=== PATIENT | male | born 1970 | race Caucasian/White ===

== ENCOUNTER 2019-06-23 06:30 | Day surgery (SDC) | payer OTHER ==
[2019-06-23] MEDS ORDERED: MIDAZOLAM HCL 2MG/2ML VIAL IV ONE (06:31)
[2019-06-23] MEDS ORDERED: LIDOCAINE 2% MDV (20MG/ML) 20ML VIAL IV ONE (06:31)
[2019-06-23] MEDS ORDERED: PROPOFOL 10 MG/ML VIAL IV ONE (06:31)
--- NOTE | 2019-06-24 07:30 | Operative Note ---
OPERATION: COLONOSCOPY with cold snare and hot snare polypectomy. PREOPERATIVE DIAGNOSIS: Colon cancer screening, initial exam, average risk. POSTOPERATIVE DIAGNOSIS: Colon polyps. PREPARATION QUALITY: Good. ESTIMATED BLOOD LOSS: Minimal. SPECIMENS: Transverse colon polyp and sigmoid colon polyp. PROCEDURE: After informed consent was obtained from the patient, he was placed in the left lateral decubitus position in the endoscopy suite, sedated and monitored by the department of anesthesia. Digital rectal examination was unremarkable. A well-lubricated [id number] colonoscope was inserted into the rectum and advanced to the cecum. Preparation quality was good. The cecum, cecal bulb, and ileocecal valve were unremarkable. The ascending colon was also unremarkable. There was a 9 mm sessile polyp on the transverse colon removed in piecemeal fashion with a cold snare. Minimal bleeding was noted. The polyp was retrieved. The remainder of the transverse colon descending colon were unremarkable. In the sigmoid colon, there was a hyperemic broad-based pedunculated polyp which was encountered. This polyp was approximately 1.8 cm in diameter. Two hemoclips were applied to the peduncle initially. The polyp was then resected with a polypectomy snare and ERBE EndoCut current. There was no bleeding at the polypectomy site. However, given the size of the peduncle, a third clip was applied to the other aspect base of the peduncle. Again no bleeding was noted. The polyp was retrieved. The remainder of the sigmoid colon and rectum were unremarkable. J-turn views of the anorectum were unremarkable. The endoscope was straightened, the rectal ampulla deflated, and the endoscope was removed. RECOMMENDATIONS: The patient should avoid aspirin and nonsteroidal products and follow a low-fiber diet all for the next 2 weeks. Further surveillance recommendations will be based on tissue histology. As always, thank you for allowing me to participate in the healthcare of your patients. CRISTHIAN
== END 2019-06-23 08:04 | disposition home or self-care (01) ==
LOC: HOP 06:30
PROVIDERS: ATTEND Internal Medicine Gastroenterology
DX: Z12.11 Encounter for screening for malignant neoplasm of colon (principal); D12.3 Benign neoplasm of transverse colon; D17.79 Benign lipomatous neoplasm of other sites; I10 Essential (primary) hypertension; E78.00 Pure hypercholesterolemia, unspecified; K21.9 Gastro-esophageal reflux disease without esophagitis